=== PATIENT | male | born 1950 ===

== ENCOUNTER 2016-12-10 04:31 | Emergency (ER) | payer MEDICARE, OTHER ==
[2016-12-10 04:45] VITALS: BP 148/89; PULSE 81; RESP 18; TEMP 98.6; O2SAT 96
[2016-12-10] MEDS ORDERED: Promethazine/Cod 6.25mg-10mg/5ml Syr UD PO STA (04:52)
[2016-12-10] MEDS ORDERED: Promethazine/Cod 6.25mg-10mg/5ml Syr UD ONE (04:52)
[2016-12-10] MEDS ORDERED: Albuterol-Ipratrop 3 mg / 0.5 (3 ml) UD INH STA (04:52)
[2016-12-10] MEDS ORDERED: Albuterol-Ipratrop 3 mg / 0.5 (3 ml) UD ONE (04:53)
--- NOTE | 2016-12-10 04:59 | ED PDOC ---
HPI: CCC, URI, Sore Throat Time Seen by Provider: 12/10/16 04:47 Chief Complaint (Nursing): Chest Pain Chief Complaint (Provider): Cough History Per: Patient History/Exam Limitations: no limitations Onset/Duration Of Symptoms: Days (x2) Current Symptoms Are (Timing): Still Present Location Of Pain: Headache Associated Symptoms: Cough. denies: Sputum, Nausea, Vomiting, Diarrhea Severity: Mild Additional Complaint(s): Patient is a 66 year old male presenting to the ED complaining of dry cough x2 days. Cough is associated with headache and malaise. Patient reports he is unable to sleep due to the cough. Denies taking medication for his symptoms. Denies chest pain, nausea, vomiting, and diarrhea. PMD: none Past Medical History Reviewed: Historical Data, Nursing Documentation, Vital Signs Vital Signs: Last Vital Signs Temp 98.6 F 12/10/16 04:41 Pulse 81 12/10/16 04:41 Resp 18 12/10/16 04:41 BP 148/89 12/10/16 04:41 Pulse Ox 96 12/10/16 06:57 - Medical History PMH: Anxiety Denies: Diabetes, Hepatitis, HIV, HTN, Chronic Kidney Disease, Seizures, Sexually Transmitted Disease - Family History Family History: States: No Known Family Hx - Home Medications Home Medications: Ambulatory Orders Medication Instructions Recorded ALPRAZolam [Xanax] 1 mg PO HS #7 tab 06/17/16 Albuterol HFA [Ventolin HFA 90 1 - 2 puff IH Q6 PRN #1 inhaler 12/10/16 mcg/actuation (8 g)] Azithromycin [Zithromax] 250 mg PO QAM #1 pkg 12/10/16 Promethazine HCl/Codeine 5 ml PO Q6 PRN #4 oz 12/10/16 [Prometh-Codein 6.25-10 mg/5 ml] - Allergies Allergies/Adverse Reactions: Allergies Allergy/AdvReac Type Severity Reaction Status Date / Time No Known Allergies Allergy Verified 06/17/16 13:07 Review of Systems ROS Statement: Except As Marked, All Systems Reviewed And Found Negative Constitutional: Positive for: Other (malaise) Cardiovascular: Negative for: Chest Pain Respiratory: Positive for: Cough. Negative for: Sputum Gastrointestinal: Negative for: Nausea, Vomiting, Diarrhea Neurological: Positive for: Headache Physical Exam - Reviewed Nursing Documentation Reviewed: Yes Vital Signs Reviewed: Yes - Physical Exam Appears: Positive for: Well, Non-toxic, No Acute Distress Head Exam: Positive for: ATRAUMATIC, NORMAL INSPECTION, NORMOCEPHALIC Skin: Positive for: Normal Color, Warm, DRY Eye Exam: Positive for: Normal appearance, EOMI Neck: Positive for: Normal, Painless ROM Cardiovascular/Chest: Positive for: Regular Rate, Rhythm. Negative for: Gallop , Murmur Respiratory: Positive for: Wheezing (trace experiatory wheezing bilaterally). Negative for: Accessory Muscle Use, Rhonchi, Respiratory Distress Extremity: Positive for: Normal ROM Neurologic/Psych: Positive for: Alert, Oriented - ECG O2 Sat by Pulse Oximetry: 96 (RA) Pulse Ox Interpretation: Normal - Radiology X-Ray: Interpreted by Me X-Ray Interpretation: No Acute Disease Medical Decision Making Medical Decision Making: Time: 4:50 Impression: 60 y/o male w/ cough Plan: EKG CXR Albuterol 3 ml INH Codeine 10 ml PO Peak Flow Pre/Post Tx 5:30 CXR shows no acute disease. Rx given. Patient feels better. Discussed results and plan with patient who expresses understanding. Counseling was provided regarding the diagnosis and prognosis. All questions answered and there is agreement with the plan to discharge home with instructions. Patient stable for discharge. Return if symptoms persist or worsen. Scribe Attestation: Documented by Racquel Echeverria acting as a scribe for Candelario Vallejo MD. Scribe Attestation: All medical record entries made by the Scribe were at my direction and personally dictated by me. I have reviewed the chart and agree that the record accurately reflects my personal performance of the history, physical exam, medical decision making, and the department course for this patient. I have also personally directed, reviewed, and agree with the discharge instructions and disposition. Disposition - Clinical Impression Clinical Impression: Bronchitis - Patient ED Disposition Is Patient to be Admitted: No Counseled Patient/Family Regarding: Studies Performed, Diagnosis, Rx Given - Disposition Referrals: [facility] [Outside] Disposition: Routine/Home Disposition Time: 05:30 Condition: STABLE Prescriptions: Promethazine HCl/Codeine [Prometh-Codein 6.25-10 mg/5 ml] 5 ml PO Q6 PRN #4 oz PRN Reason: Cough Albuterol HFA [Ventolin HFA 90 mcg/actuation (8 g)] 1 - 2 puff IH Q6 PRN #1 inhaler PRN Reason: Shortness Of Breath Azithromycin [Zithromax] 250 mg PO QAM #1 pkg Instructions: Acute Bronchitis (ED)
--- NOTE | 2016-12-10 09:42 | RAD ---
HISTORY: cough COMPARISON: No prior. TECHNIQUE: Chest PA and lateral FINDINGS: LUNGS: No active pulmonary disease. PLEURA: No significant pleural effusion identified. No pneumothorax apparent. CARDIOVASCULAR: Normal. OSSEOUS STRUCTURES: No significant abnormalities. VISUALIZED UPPER ABDOMEN: Normal. OTHER FINDINGS: None. IMPRESSION: No active disease.
--- NOTE | 2016-12-10 19:06 | CARD ---
APPROVED REPORT EKG Measurement Heart [id number] <Conclusion> Sinus rhythm with premature atrial complexes Left anterior fascicular block Abnormal ECG
== END 2016-12-10 06:08 | disposition home or self-care (01) ==
LOC: H.ER 04:31
DX: J40 Bronchitis, not specified as acute or chronic (principal); R05 Cough; R07.9 Chest pain, unspecified; F41.9 Anxiety disorder, unspecified

== ENCOUNTER 2017-09-11 04:20 | Emergency (ER) | payer OTHER ==
[2017-09-11 04:31] VITALS: BP 168/100; PULSE 74; RESP 18; TEMP 97.8; O2SAT 100
[2017-09-11] MEDS ORDERED: Promethazine 12.5 mg/10 ml Syrup PO STA (04:34)
[2017-09-11] MEDS ORDERED: Promethazine 6.25 MG/5 ML CUP ONE (05:09)
--- NOTE | 2017-09-11 06:26 | ED PDOC ---
HPI: CCC, URI, Sore Throat Time Seen by Provider: 09/11/17 04:29 Chief Complaint (Nursing): Cough, Cold, Congestion Chief Complaint (Provider): Cough, Cold, Congestion History Per: Patient History/Exam Limitations: no limitations Onset/Duration Of Symptoms: Days (x2) Current Symptoms Are (Timing): Still Present Additional Complaint(s): 67 year old male who presents to the emergency department with a complaint of dry cough associated with runny nose ongoing for 2 nights. Denied any fever or chills. PMD: none provided Past Medical History Reviewed: Historical Data, Nursing Documentation, Vital Signs Vital Signs: Last Vital Signs Temp 97.8 F 09/11/17 04:29 Pulse 74 09/11/17 04:29 Resp 18 09/11/17 04:29 BP 168/100 H 09/11/17 04:29 Pulse Ox 100 09/11/17 06:29 - Medical History PMH: Anxiety Denies: Diabetes, Hepatitis, HIV, HTN, Chronic Kidney Disease, Seizures, Sexually Transmitted Disease - Surgical History Surgical History: No Surg Hx - Family History Family History: States: Unknown Family Hx - Social History Current smoker - smoking cessation education provided: No Alcohol: None Drugs: Denies - Home Medications Home Medications: Ambulatory Orders Medication Instructions Recorded ALPRAZolam [Xanax] 1 mg PO HS #7 tab 06/17/16 Albuterol HFA [Ventolin HFA 90 1 - 2 puff IH Q6 PRN #1 inhaler 12/10/16 mcg/actuation (8 g)] Azithromycin [Zithromax] 250 mg PO QAM #1 pkg 12/10/16 Promethazine HCl/Codeine 5 ml PO Q6 PRN #4 oz 12/10/16 [Prometh-Codein 6.25-10 mg/5 ml] Benzonatate [Tessalon Perle] 100 mg PO TID #20 capsule 09/11/17 Ibuprofen [Motrin Tab] 600 mg PO Q6 #30 tab 09/11/17 - Allergies Allergies/Adverse Reactions: Allergies Allergy/AdvReac Type Severity Reaction Status Date / Time No Known Allergies Allergy Verified 06/17/16 13:07 Review of Systems ROS Statement: Except As Marked, All Systems Reviewed And Found Negative Constitutional: Negative for: Fever, Chills ENT: Positive for: Nose Discharge Respiratory: Positive for: Cough (dry) Physical Exam - Reviewed Nursing Documentation Reviewed: Yes Vital Signs Reviewed: Yes - Physical Exam Appears: Positive for: Well, Non-toxic, No Acute Distress ENT: Positive for: Normal ENT Inspection, Pharynx Is (within normal limits). Negative for: Sinus Pain/Drainage, Nasal Congestion, Pharyngeal Erythema Neck: Positive for: Normal, Painless ROM, Supple. Negative for: Decreased ROM Cardiovascular/Chest: Positive for: Regular Rate, Rhythm, Chest Non Tender Respiratory: Positive for: Normal Breath Sounds. Negative for: Decreased Breath Sounds, Respiratory Distress Gastrointestinal/Abdominal: Positive for: Normal Exam, Soft. Negative for: Tenderness Neurologic/Psych: Positive for: Alert (x3), Oriented - ECG O2 Sat by Pulse Oximetry: 100 (RA) Pulse Ox Interpretation: Normal Medical Decision Making Medical Decision Making: Initial Impression: URI Initial Plan: * CXR * Motrin 600mg * Phenergan syrup 12.5mg PO * Influenza A B ____ Time: 0434 --CXR: no active disease noted. Time: 0600 --Upon provider reevaluation, patient is feeling better, medically stable and requires no further treatment in the ED at this time. Patient will be discharged home with Rx for tessalon perles and nsaid. Counseling was provided and all questions were answered regarding diagnosis and need for follow up with ortho. There is agreement to discharge plan. Return if symptoms persist or worsen. Clinical Impression: URI Scribe Attestation: Documented by Ingrid Kiran, acting as a scribe for Alvaro Oliver MD. Provider Scribe Attestation: All medical record entries made by the Scribe were at my direction and personally dictated by me. I have reviewed the chart and agree that the record accurately reflects my personal performance of the history, physical exam, medical decision making, and the department course for this patient. I have also personally directed, reviewed, and agree with the discharge instructions and disposition. Disposition - Clinical Impression Clinical Impression: Cough - Disposition Referrals: [facility] [Outside] Disposition Time: 06:15 Condition: STABLE Prescriptions: Benzonatate [Tessalon Perle] 100 mg PO TID #20 capsule Ibuprofen [Motrin Tab] 600 mg PO Q6 #30 tab Instructions: Acute Cough (ED), Cold Symptoms (ED) Forms: [facility] (Belarusian) Print Language: THAI
--- NOTE | 2017-09-11 08:15 | RAD ---
HISTORY: cough COMPARISON: No prior. TECHNIQUE: Chest PA and lateral FINDINGS: LUNGS: No active pulmonary disease. PLEURA: No significant pleural effusion identified. No pneumothorax apparent. CARDIOVASCULAR: Normal. OSSEOUS STRUCTURES: No significant abnormalities. VISUALIZED UPPER ABDOMEN: Normal. OTHER FINDINGS: Aorta is unchanged in size. IMPRESSION: No focal alveolar infiltrate. Nonspecific slight interstitial prominence similar to prior study.
== END 2017-09-11 06:12 | disposition home or self-care (01) ==
LOC: H.ER 04:20
DX: R05 Cough (principal); F41.9 Anxiety disorder, unspecified

== ENCOUNTER 2018-05-11 11:47 | Emergency (ER) | payer OTHER ==
[2018-05-11 11:51] VITALS: BMI 29.7
[2018-05-11 11:53] VITALS: TEMP 98.5
[2018-05-11 12:38] VITALS: BP 154/98; PULSE 71; RESP 14; O2SAT 96
[2018-05-11] MEDS ORDERED: Albuterol 0.083% Inhal Sol (2.5 mg/3 mL) UD INH STA (12:46)
[2018-05-11] MEDS ORDERED: Promethazine/Cod 6.25mg-10mg/5ml Syr UD PO STA (12:46)
[2018-05-11] MEDS ORDERED: Albuterol 0.083% Inhal Sol (2.5 mg/3 mL) UD ONE (13:00)
[2018-05-11] MEDS ORDERED: Promethazine/Cod 6.25mg-10mg/5ml Syr UD ONE (13:01)
--- NOTE | 2018-05-11 13:37 | ED PDOC ---
History of Present Illness History of Present Illness: 68yo male, history of hypertension, comes to ER with complaints of cough, sore throat and congestion x 2 days. Patient states the cough is productive with small amounts of phlegm; additionally he states he has bilateral ribs pain while coughing but denies any chest pain. He also denies any shortness of breath , leg swelling, fever, throat swelling, difficulty swallowing. Patient denies any known sick contacts, or recent travels. PMD: None HPI: Influenza Time Seen by Provider: 05/11/18 12:25 Chief Complaint: Cough, Cold, Congestion Chief Complaint (Provider): Cough, sore throat History Per: Patient Exam Limitations: no limitations Have you had recent travel within the past 21 days to any of: No Onset/Duration Of Symptoms: Days Symptoms include: sore throat, cough, nasal congestion Sick Contacts (Context): None Past Medical History Reviewed: Historical Data, Nursing Documentation, Vital Signs Vital Signs: Last Vital Signs Temp 98.5 F 05/11/18 11:52 Pulse 71 05/11/18 12:32 Resp 14 05/11/18 12:32 BP 154/98 H 05/11/18 12:32 Pulse Ox 96 05/11/18 12:32 - Medical History PMH: Anxiety Denies: Diabetes, Hepatitis, HIV, HTN, Chronic Kidney Disease, Seizures, Sexually Transmitted Disease - Surgical History Surgical History: No Surg Hx - Family History Family History: States: No Known Family Hx - Social History Current smoker - smoking cessation education provided: No Alcohol: None Drugs: Denies - Immunization History Hx Tetanus Toxoid Vaccination: No Hx Influenza Vaccination: Yes Hx Pneumococcal Vaccination: No - Home Medications Home Medications: Ambulatory Orders Medication Instructions Recorded ALPRAZolam [Xanax] 1 mg PO HS #7 tab 06/17/16 Albuterol HFA [Ventolin HFA 90 1 - 2 puff IH Q6 PRN #1 inhaler 12/10/16 mcg/actuation (8 g)] Azithromycin [Zithromax] 250 mg PO QAM #1 pkg 12/10/16 Promethazine HCl/Codeine 5 ml PO Q6 PRN #4 oz 12/10/16 [Prometh-Codein 6.25-10 mg/5 ml] Benzonatate [Tessalon Perle] 100 mg PO TID #20 capsule 09/11/17 Ibuprofen [Motrin Tab] 600 mg PO Q6 #30 tab 09/11/17 Albuterol HFA [Ventolin HFA 90 1 puff IH Q4 #1 inh 05/11/18 mcg/actuation (8 g)] Azithromycin [Z-Siddharth] 250 mg PO ASDIR #6 tab 05/11/18 - Allergies Allergies/Adverse Reactions: Allergies Allergy/AdvReac Type Severity Reaction Status Date / Time No Known Allergies Allergy Verified 05/11/18 12:24 Review of Systems ROS Statement: Except As Marked, All Systems Reviewed And Found Negative Constitutional: Negative for: Fever, Chills ENT: Positive for: Nose Congestion, Throat Pain Cardiovascular: Negative for: Chest Pain Respiratory: Positive for: Cough, Sputum. Negative for: Shortness of Breath, Hemoptysis Gastrointestinal: Negative for: Vomiting Physical Exam - Reviewed Nursing Documentation Reviewed: Yes Vital Signs Reviewed: Yes - Physical Exam Appears: Positive for: Well, Non-toxic, No Acute Distress Head Exam: Positive for: ATRAUMATIC, NORMAL INSPECTION, NORMOCEPHALIC Skin: Positive for: Normal Color, Warm, DRY Eye Exam: Positive for: EOMI, Normal appearance, PERRL ENT: Positive for: Normal ENT Inspection. Negative for: Pharyngeal Erythema, Tonsillar Exudate, Tonsillar Swelling Neck: Positive for: Normal, Painless ROM Cardiovascular/Chest: Positive for: Regular Rate, Rhythm, Chest Non Tender Respiratory: Positive for: Normal Breath Sounds. Negative for: Wheezing, Respiratory Distress Gastrointestinal/Abdominal: Positive for: Normal Exam, Soft Back: Positive for: Normal Inspection Extremity: Positive for: Normal ROM. Negative for: Pedal Edema Neurologic/Psych: Positive for: Alert, Oriented. Negative for: Motor/Sensory Deficits Medical Decision Making Medical Decision Making: Impression: Respiratory syndrome Differential: Acute bronchitis, r/o pneumonia, URI Plan: * Chest x-ray * EKG * Albuterol 2.5ml INH * Rapid strep * Phenergan 5ml PO Time: 1400 Rapid strep negative Time: 1443 Chest x-ray FINDINGS: LUNGS: No consolidation. The overall interstitial lung markings appear minimally increased/prominent yet similar to prior appearance No interval changes perceived in this regard. PLEURA: No significant pleural effusion identified. No pneumothorax apparent. CARDIOVASCULAR: Normal heart size. Prominent at ascending and descending thoracic aorta- similar in appearance OSSEOUS STRUCTURES: Thoracic spondylosis. No fracture appreciated VISUALIZED UPPER ABDOMEN: Normal. OTHER FINDINGS: None. IMPRESSION: No acute cardiopulmonary pathology noted. Chronic appearing bilateral interstitial lung marking changes as referenced above. Time: 1447 On reassessment, patient reports feeling much better and is stable for discharge home. Scribe Attestation: Documented by Yessica Colón, acting as a scribe for Suzanne Cárdenas MD. Provider Scribe Attestation: All medical record entries made by the Scribe were at my direction and personally dictated by me. I have reviewed the chart and agree that the record accurately reflects my personal performance of the history, physical exam, medical decision making, and the department course for this patient. I have also personally directed, reviewed, and agree with the discharge instructions and disposition. - ECG O2 Sat by Pulse Oximetry: 96 Disposition - Clinical Impression Clinical Impression: Bronchitis - Patient ED Disposition Is Patient to be Admitted: No Doctor Will See Patient In The: Office Counseled Patient/Family Regarding: Studies Performed, Diagnosis, Need For Followup - Disposition Referrals: [facility] [Outside] Disposition: Routine/Home Disposition Time: 14:50 Condition: GOOD Additional Instructions: Take your medications as instructed. Follow up with your PCP in 2-3 days. Prescriptions: Albuterol HFA [Ventolin HFA 90 mcg/actuation (8 g)] 1 puff IH Q4 #1 inh Azithromycin [Z-Siddharth] 250 mg PO ASDIR #6 tab Instructions: Acute Bronchitis Print Language: TOGOLESE
--- NOTE | 2018-05-11 14:44 | RAD ---
Date of service: 05/11/2018 HISTORY: cough rib pain COMPARISON: 09/11/2017 TECHNIQUE: Chest PA and lateral FINDINGS: LUNGS: No consolidation. The overall interstitial lung markings appear minimally increased/prominent yet similar to prior appearance No interval changes perceived in this regard. PLEURA: No significant pleural effusion identified. No pneumothorax apparent. CARDIOVASCULAR: Normal heart size. Prominent at ascending and descending thoracic aorta-similar in appearance OSSEOUS STRUCTURES: Thoracic spondylosis. No fracture appreciated VISUALIZED UPPER ABDOMEN: Normal. OTHER FINDINGS: None. IMPRESSION: No acute cardiopulmonary pathology noted. Chronic appearing bilateral interstitial lung marking changes as referenced above.
--- NOTE | 2018-05-11 18:08 | CARD ---
APPROVED REPORT Date of service: 05/11/2018 <Conclusion> Normal sinus rhythm Incomplete right bundle branch block Left anterior fascicular block ST & T wave abnormality, consider lateral ischemia Abnormal ECG
== END 2018-05-11 14:53 | disposition home or self-care (01) ==
LOC: H.ER 11:47
DX: J40 Bronchitis, not specified as acute or chronic (principal); I10 Essential (primary) hypertension

== ENCOUNTER 2018-07-25 09:01 | Emergency (ER) | payer MEDICARE, OTHER ==
[2018-07-25 09:13] VITALS: BMI 25.0
[2018-07-25] MEDS ORDERED: PROPARACAINE/FLUORESCEIN SOD 100 DROP/5 ML BOTTLE ONE (10:18)
[2018-07-25] MEDS ORDERED: PROPARACAINE/FLUORESCEIN SOD 100 DROP/5 ML BOTTLE OD STA (10:25)
--- NOTE | 2018-07-25 10:34 | ED PDOC ---
HPI: Eye Injury/Pain Time Seen by Provider: 07/25/18 09:46 Chief Complaint (Nursing): Eye Problem Chief Complaint (Provider): Blurry vision History Per: Patient History/Exam Limitations: no limitations Onset/Duration Of Symptoms: Days (3) Additional Complaint(s): Pt reports blurry vision of R eye X 3 days. Denies pain, vision loss, trauma, discharge, itching, redness. Denies CHAPMAN, paresthesias, weakness. Friend also states patient has been anxious lately, recently came from [place] where he was taking Xanax but has not found doctor here yet. Denies suicidal/homicidal ideation. NIHSS Stroke Scale - Date/Time Evaluation Performed Date Performed: 07/25/18 When Was NIHSS Performed: Baseline - How Severe is the Stroke Level of Consciousness: 0=Alert LOC to Questions: 0=Both comments correct LOC to commands: 0=Obeys both correctly Best Gaze: 0=Normal Visual: 0=No visual loss Facial: 0=Normal Motor Arm - Left: 0=No drift Motor Arm - Right: 0=No drift Motor Leg - Left: 0=No drift Motor Leg - Right: 0=No drift Limb Ataxia: 0=Absent Sensory: 0=Normal Best Language: 0=No aphasia Dysarthia: 0=Normal articulation Extinction & Inattention (Neglect): 0=Normal, no object Score: 0 Past Medical History Reviewed: Nursing Documentation, Vital Signs Vital Signs: Last Vital Signs Temp 97.5 F L 07/25/18 09:14 Pulse 75 07/25/18 09:14 Resp 20 07/25/18 09:14 BP 138/83 07/25/18 09:14 Pulse Ox 97 07/25/18 09:14 - Medical History PMH: Anxiety, Depression Denies: Diabetes - Family History Family History: States: Unknown Family Hx - Social History Current smoker - smoking cessation education provided: No Alcohol: None - Immunization History Hx Tetanus Toxoid Vaccination: No Hx Influenza Vaccination: Yes Hx Pneumococcal Vaccination: No - Home Medications Home Medications: Ambulatory Orders Medication Instructions Recorded ALPRAZolam [Xanax] 1 mg PO HS #7 tab 06/17/16 Albuterol HFA [Ventolin HFA 90 1 - 2 puff IH Q6 PRN #1 inhaler 12/10/16 mcg/actuation (8 g)] Azithromycin [Zithromax] 250 mg PO QAM #1 pkg 12/10/16 Promethazine HCl/Codeine 5 ml PO Q6 PRN #4 oz 12/10/16 [Prometh-Codein 6.25-10 mg/5 ml] Benzonatate [Tessalon Perle] 100 mg PO TID #20 capsule 09/11/17 Ibuprofen [Motrin Tab] 600 mg PO Q6 #30 tab 09/11/17 Albuterol HFA [Ventolin HFA 90 1 puff IH Q4 #1 inh 05/11/18 mcg/actuation (8 g)] Azithromycin [Z-Siddharth] 250 mg PO ASDIR #6 tab 05/11/18 Cephalexin [Keflex] 500 mg PO BID #14 capsule 05/13/18 Methylprednisolone [Medrol Dose 4 mg PO DAILY #21 mg 05/13/18 Pack (21 tabs)] - Allergies Allergies/Adverse Reactions: Allergies Allergy/AdvReac Type Severity Reaction Status Date / Time No Known Allergies Allergy Verified 05/13/18 18:43 Review of Systems Constitutional: Negative for: Fever, Chills Eyes: Positive for: Vision Change. Negative for: Pain, Conjunctivae Inflammation, Eyelid Inflammation, Redness Cardiovascular: Negative for: Chest Pain Respiratory: Negative for: Cough, Shortness of Breath Gastrointestinal: Negative for: Vomiting Musculoskeletal: Negative for: Neck Pain Skin: Negative for: Rash, Lesions Neurological: Negative for: Weakness, Numbness, Incoordination, Change in Speech, Confusion, Seizures, Altered Mental Status, Headache, Dizziness Psych: Positive for: Anxiety. Negative for: Depression, Psychosis, Suicidal ideation, Withdrawal Physical Exam - Reviewed Nursing Documentation Reviewed: Yes Vital Signs Reviewed: Yes - Physical Exam Appears: Positive for: Well, No Acute Distress Head Exam: Positive for: ATRAUMATIC, NORMAL INSPECTION Skin: Positive for: Normal Color, Warm, Dry Eye Exam: Positive for: Normal appearance, EOMI, PERRL, Other (No abnormal fluoroscein uptake). Negative for: Nystagmus, Periorbital swelling, Periorbital tenderness, Conjunctival injection, Scleral icterus Neck: Positive for: Normal, Painless ROM, Supple Cardiovascular/Chest: Positive for: Regular Rate, Rhythm Respiratory: Positive for: Normal Breath Sounds Extremity: Positive for: Normal ROM Neurologic/Psych: Positive for: Alert, linen attendant II-XII, Oriented, Mood/Affect (Normal), Cerebellar Tests (WNL). Negative for: Motor/Sensory Deficits, Aphasia, Facial Droop - ECG O2 Sat by Pulse Oximetry: 97 Medical Decision Making Medical Decision Makin yo male with blurry vision. - CT head Accession No. : [id number] Patient Name / ID : CONCEPCIÓN OSBORN / [id number] Exam Date : 07/25/2018 10:53:38 ( Approved ) Study Comment : Sex / Age : M / 68Y Creator : Sushil Guerrier MD Dictator : Sushil Guerrier MD Syruper : Director Of Programming : Sushil Guerrier MD Approver2 : Report Date : 07/25/2018 11:09:53 My Comment : Date of service: 07/25/2018 PROCEDURE: CT HEAD WITHOUT CONTRAST. HISTORY: R blurry vision COMPARISON: None available. TECHNIQUE: Axial computed tomography images were obtained through the head/brain without intravenous contrast. Supplemental Coronal and Sagittal projections created and reviewed. Radiation dose: Total exam DLP = 828.49 mGy-cm. This CT exam was performed using one or more of the following dose reduction techniques: Automated exposure control, adjustment of the mA and/or kV according to patient size, and/or use of iterative reconstruction technique. FINDINGS: HEMORRHAGE: No intracranial hemorrhage. BRAIN: No mass effect or edema. Small lacune or infarcts identified on the left. VENTRICLES: Unremarkable. No hydrocephalus. CALVARIUM: Unremarkable. PARANASAL SINUSES: Unremarkable as visualized. No significant inflammatory changes. MASTOID AIR CELLS: Unremarkable as visualized. No inflammatory changes. OTHER FINDINGS: None. IMPRESSION: No acute intracranial abnormalities. No significant findings to account for the clinical presentation. Pt declined Crisis evaluation. 12:[address] Nunn, at this time can see him in the office tomorrow morning at 9am. Disposition - Clinical Impression Clinical Impression: Blurred vision, right eye, Anxiety - Disposition Referrals: [facility] [Outside] Alvin Thomas MD [Staff Provider] - Disposition: Routine/Home Disposition Time: 13:08 Condition: STABLE Additional Instructions: FOLLOW-UP WITH DR. THOMAS TOMORROW @ 9 AM WITHOUT FAIL! Instructions: Anxiety, Adult (DC), Age-Related Vision Loss Forms: [facility] (Tristanian) Print Language: JAPANESE
--- NOTE | 2018-07-25 11:13 | CT ---
Date of service: 07/25/2018 PROCEDURE: CT HEAD WITHOUT CONTRAST. HISTORY: R blurry vision COMPARISON: None available. TECHNIQUE: Axial computed tomography images were obtained through the head/brain without intravenous contrast. Supplemental Coronal and Sagittal projections created and reviewed. Radiation dose: Total exam DLP = 828.49 mGy-cm. This CT exam was performed using one or more of the following dose reduction techniques: Automated exposure control, adjustment of the mA and/or kV according to patient size, and/or use of iterative reconstruction technique. FINDINGS: HEMORRHAGE: No intracranial hemorrhage. BRAIN: No mass effect or edema. Small lacune or infarcts identified on the left. VENTRICLES: Unremarkable. No hydrocephalus. CALVARIUM: Unremarkable. PARANASAL SINUSES: Unremarkable as visualized. No significant inflammatory changes. MASTOID AIR CELLS: Unremarkable as visualized. No inflammatory changes. OTHER FINDINGS: None. IMPRESSION: No acute intracranial abnormalities. No significant findings to account for the clinical presentation.
[2018-07-26 00:21] VITALS: BP 155/98; PULSE 68; RESP 16; TEMP 97.9
[2018-07-27 10:21] VITALS: O2SAT 97
== END 2018-07-25 13:40 | disposition home or self-care (01) ==
LOC: H.ER 09:01
DX: H53.8 Other visual disturbances (principal); F41.9 Anxiety disorder, unspecified; F32.9 Major depressive disorder, single episode, unspecified

== ENCOUNTER 2018-11-09 05:25 | Emergency (ER) | payer MEDICARE ==
[2018-11-09 05:25] VITALS: BMI 25.0
--- NOTE | 2018-11-09 06:47 | ED PDOC ---
HPI: General Adult Time Seen by Provider: 11/09/18 05:50 Chief Complaint (Nursing): Upper Extremity Problem/Injury Chief Complaint (Provider): med Refill History Per: Patient History/Exam Limitations: no limitations Onset/Duration Of Symptoms: Days Current Symptoms Are (Timing): Still Present Additional Complaint(s): 68 year old male with a history of depression presents to the ED with two complaints. He is requesting a refill of his Paxil which he takes 10 mg of daily. Patient was unable to make an appointment with Dr. Sanatmaria, his PMD, in order to renew a prescription. He also has a prescription for an echo stress test and would like one to be performed in the ED. He offers no other complaints and denies both Si and HI. PMD: Dr. Chris Santamaria Past Medical History Reviewed: Historical Data, Nursing Documentation, Vital Signs Vital Signs: Last Vital Signs Temp 97.6 F 11/09/18 05:41 Pulse 72 11/09/18 05:41 Resp 17 11/09/18 05:41 BP 153/99 H 11/09/18 05:41 Pulse Ox 98 11/09/18 05:41 - Medical History PMH: Anxiety, Depression Denies: Diabetes, Hepatitis, HIV, HTN, Chronic Kidney Disease, Seizures, Sexually Transmitted Disease - Surgical History Surgical History: No Surg Hx - Family History Family History: States: Unknown Family Hx - Immunization History Hx Tetanus Toxoid Vaccination: No Hx Influenza Vaccination: Yes Hx Pneumococcal Vaccination: No - Home Medications Home Medications: Ambulatory Orders Medication Instructions Recorded ALPRAZolam [Xanax] 1 mg PO HS #7 tab 06/17/16 Albuterol HFA [Ventolin HFA 90 1 - 2 puff IH Q6 PRN #1 inhaler 12/10/16 mcg/actuation (8 g)] Azithromycin [Zithromax] 250 mg PO QAM #1 pkg 12/10/16 Promethazine HCl/Codeine 5 ml PO Q6 PRN #4 oz 12/10/16 [Prometh-Codein 6.25-10 mg/5 ml] Benzonatate [Tessalon Perle] 100 mg PO TID #20 capsule 09/11/17 Ibuprofen [Motrin Tab] 600 mg PO Q6 #30 tab 09/11/17 Albuterol HFA [Ventolin HFA 90 1 puff IH Q4 #1 inh 05/11/18 mcg/actuation (8 g)] Azithromycin [Z-Siddharth] 250 mg PO ASDIR #6 tab 05/11/18 Cephalexin [Keflex] 500 mg PO BID #14 capsule 05/13/18 Methylprednisolone [Medrol Dose 4 mg PO DAILY #21 mg 05/13/18 Pack (21 tabs)] PARoxetine [Paxil] 10 mg PO QAM #7 tab 11/09/18 - Allergies Allergies/Adverse Reactions: Allergies Allergy/AdvReac Type Severity Reaction Status Date / Time No Known Allergies Allergy Verified 05/13/18 18:43 Review of Systems ROS Statement: Except As Marked, All Systems Reviewed And Found Negative Physical Exam - Reviewed Nursing Documentation Reviewed: Yes Vital Signs Reviewed: Yes - Physical Exam Appears: Positive for: Non-toxic, No Acute Distress Head Exam: Positive for: ATRAUMATIC, NORMAL INSPECTION, NORMOCEPHALIC Skin: Positive for: Normal Color, Warm. Negative for: Rash Eye Exam: Positive for: EOMI, Normal appearance, PERRL ENT: Positive for: Normal ENT Inspection Neck: Positive for: Normal, Painless ROM Cardiovascular/Chest: Positive for: Regular Rate, Rhythm. Negative for: Bradycardia Respiratory: Positive for: Normal Breath Sounds. Negative for: Respiratory Distress Gastrointestinal/Abdominal: Positive for: Normal Exam, Soft Back: Positive for: Normal Inspection Extremity: Positive for: Normal ROM. Negative for: Deformity Neurologic/Psych: Positive for: Alert, Oriented. Negative for: Motor/Sensory Deficits - ECG O2 Sat by Pulse Oximetry: 98 (RA) Pulse Ox Interpretation: Normal Medical Decision Making Medical Decision Makin Impression: 68 year old male with depression Educated patient on need to schedule an echo stress test with the cardiology department. Return precautions provided. Scribe Attestation: Documented by Chelsie Oshea acting as a scribe for Candelario Vallejo MD Provider Scribe Attestation: All medical record entries made by the Scribe were at my direction and personally dictated by me. I have reviewed the chart and agree that the record accurately reflects my personal performance of the history, physical exam, medical decision making, and the department course for this patient. I have also personally directed, reviewed, and agree with the discharge instructions and disposition. Disposition - Clinical Impression Clinical Impression: Depression - Patient ED Disposition Is Patient to be Admitted: No - Disposition Disposition: Routine/Home Disposition Time: 06:50 Condition: STABLE Prescriptions: PARoxetine [Paxil] 10 mg PO QAM #7 tab Instructions: Depression Forms: [facility] (Fijian)
[2018-11-09 10:17] VITALS: BP 153/99; PULSE 72; RESP 17; TEMP 97.6; O2SAT 98
== END 2018-11-09 06:36 | disposition home or self-care (01) ==
LOC: H.ER 05:25
DX: F32.9 Major depressive disorder, single episode, unspecified (principal); F41.9 Anxiety disorder, unspecified